=== PATIENT | male | born 2005 | race Caucasian/White ===

== ENCOUNTER → 2024-10-24 14:23 | Outpatient (REF) | payer OTHER, SELFPAY | LOC: HWRAD 14:23 | PROVIDERS: ATTENDING PHYSICIAN Internal Medicine Gastroenterology | DX: R10.10 Upper abdominal pain, unspecified (principal) | CPT/HCPCS: 76700 ==

== ENCOUNTER 2024-10-28 06:33 | Day surgery (SDC) | payer OTHER, SELFPAY | END 2024-10-28 15:35 | disposition home or self-care (01) | LOC: GI 06:33 | PROVIDERS: ATTENDING PHYSICIAN Internal Medicine Gastroenterology | DX: R10.10 Upper abdominal pain, unspecified (principal); K22.82 Esophagogastric junction polyp; K20.90 Esophagitis, unspecified without bleeding; K29.70 Gastritis, unspecified, without bleeding | CPT/HCPCS: 43239; 88305; 88342 ==

== ENCOUNTER 2024-12-15 06:23 | Day surgery (SDC) | payer OTHER, SELFPAY | END 2024-12-15 08:51 | disposition home or self-care (01) | LOC: GI 06:23 | PROVIDERS: ATTENDING PHYSICIAN Internal Medicine Gastroenterology | DX: R19.4 Change in bowel habit (principal) | CPT/HCPCS: 45380; 88305 ==

== ENCOUNTER → 2025-01-31 13:59 | Outpatient (REF) | payer OTHER, SELFPAY | LOC: RAD 13:59 | PROVIDERS: ATTENDING PHYSICIAN Internal Medicine Gastroenterology | DX: R63.4 Abnormal weight loss (principal) | CPT/HCPCS: 74177; Q9967 ==